=== PATIENT | female | born 1960 | race Caucasian/White ===

== ENCOUNTER 2018-04-15 08:48 | Day surgery (SDC) | payer BC ==
[2018-04-15 09:21] VITALS: TEMP 97.9; BMI 22.1
[2018-04-15] MEDS ORDERED: PROPOFOL 20 ML ONE ×2 (09:22)
[2018-04-15] MEDS ORDERED: ePHEDrine SULFATE 50 MG/1 ML AMPULE ONE (11:31)
[2018-04-15 13:09] VITALS: BP 115/81; PULSE 58
== END 2018-04-15 12:15 | disposition home or self-care (01) ==
LOC: FASU-ENDO 08:48
PROVIDERS: ATTEND Internal Medicine Gastroenterology
PROC: 0DJD8ZZ Inspection of Lower Intestinal Tract, Via Natural or Artificial Opening Endoscopic (ICD-10-PCS; principal; 2018-04-15 11:21)
DX: Z12.11 Encounter for screening for malignant neoplasm of colon (principal)

== ENCOUNTER 2018-11-01 06:02 | Day surgery (SDC) | payer SELFPAY ==
[2018-10-31 11:49] VITALS: BMI 23.8
[2018-11-01] MEDS ORDERED: BACITRACIN 15 GM TUBE TOPICAL OINTMENT ONE (07:16)
[2018-11-01] MEDS ORDERED: LIDOCAINE 1%-EPI 1:100,000 30 ML MDV IJ ONE (07:16)
[2018-11-01] MEDS ORDERED: BENZOIN TINCTURE SWABSTICK TP ONE (07:16)
[2018-11-01] MEDS ORDERED: MINERAL OIL 25 ML OIL ONE (07:26)
[2018-11-01] MEDS ORDERED: BACITRACIN/POLYMYXIN OPH OINT 3.5 GM TUBE ONE (07:27)
[2018-11-01] MEDS ORDERED: PROPOFOL 20 ML ONE ×7 (07:42)
[2018-11-01] MEDS ORDERED: ROCURONIUM BROMIDE 50 MG/5 ML VIAL ONE (07:42)
[2018-11-01] MEDS ORDERED: SUCCINYLCHOLINE CHLORIDE 200 MG/10 ML VIAL ONE (07:42)
[2018-11-01] MEDS ORDERED: MIDAZOLAM HCL 2 MG/2 ML SINGLE DOSE VIAL ONE (07:42)
[2018-11-01] MEDS ORDERED: ceFAZolin SODIUM 1 GM VIAL IVPB ONE (08:10)
[2018-11-01] MEDS ORDERED: DEXAMETHASONE SOD PHOSPHATE 4 MG/1 ML VIAL ONE (08:15)
[2018-11-01] MEDS ORDERED: ceFAZolin SODIUM 1 GM VIAL ONE (08:15)
[2018-11-01] MEDS ORDERED: LIDOCAINE 1%/EPI 1:100000 (50 ML MULTI DOSE VIAL) INF ONE (08:21)
[2018-11-01] MEDS ORDERED: ePHEDrine SULFATE 50 MG/1 ML AMPULE ONE (09:27)
[2018-11-01] MEDS ORDERED: MINERAL OIL 25 ML OIL TP ONE (10:12)
--- NOTE | 2018-11-01 10:22 | OP ---
Operative Note - Note: Operative Date: 11/01/18 Pre-Operative Diagnosis: cosmetic aging face Operation: Facelift Post-Operative Diagnosis: Same as Pre-op Surgeon: Ronald Nelson Anesthesiologist/SPEECH THERAPY DIRECTOR: Nelson Encarnacion Anesthesia: General Estimated Blood Loss (mls): 20
[2018-11-01] MEDS ORDERED: ONDANSETRON 4 MG/2 ML VIAL IVPUSH PRN (10:27)
[2018-11-01] MEDS ORDERED: oxyCODONE HCL 5 MG TABLET PO PRN ×2 (10:27)
[2018-11-01] MEDS ORDERED: PROMETHAZINE HCL 25 MG/1 ML VIAL IVPUSH PRN (10:27)
[2018-11-01 11:52] VITALS: TEMP 98
--- NOTE | 2018-11-01 16:26 | OP ---
DATE OF OPERATION: SURGEON: Jason Nelson M.D. PREOPERATIVE DIAGNOSIS: Aging face deformity. POSTOPERATIVE DIAGNOSIS: Aging face deformity. OPERATIVE PROCEDURE: Face lift. OPERATIVE INDICATION: The patient is a 57-year-old white female who complains of aging face deformity and neck issues with sagging platysmal banding and descent of this tissue. The risks and benefits of surgical versus nonsurgical alternatives as well as material complications of facelift procedure along with the neck and jawline were discussed with the patient on multiple occasions preoperatively including today in the holding area where she was marked in the sitting position with outline of the procedure, re-discussion, and all questions were asked and answered. OPERATIVE PROCEDURE IN DETAIL: Patient was taken to the operating room where after induction of general anesthesia in the supine position, the entire face is prepped with ChloraPrep solution over its entire extent, then serial drapes are placed in the usual fashion with her head draped. At this point, 1% local lidocaine anesthesia with 1:100,000 epinephrine was injected into the planned incision in the preauricular area and then behind the tragus, and then the postauricular area in the usual fashion for facelifting. This was carried out both sides of the face in a dilute 0.25% lidocaine solution with 1:100,000 epinephrine was infiltrated into the neck by 3 stab wounds in the submental region and 2 in the periauricular area . After infiltrating approximately 60 mL into the neck area and waiting approximately 10 minutes, hemostasis was obtained. The face was begun on the right side. Incision was made along the curvature of the preauricular area in a retrotragal fashion, and then in a postauricular area elevating the skin and subcutaneous tissue from the deep tissues. A plane was then dissected forward towards the nasolabial fold on the anterior portion of the face and retrotragal down to the clavicle area. Dissection was then carried forward across the neck on the right side and the skin and subcutaneous tissue was elevated. Hemostasis was meticulously obtained throughout using the bipolar electrocautery and optical magnification of 2.0 power. Once this advanced and closed superiorly and laterally in its new anatomic position, tacked into position, and then the opposite left face was similarly operated on in the same fashion. Good symmetry was then seen after tacking both sides, and then the skin and subcutaneous tissue was trimmed to a pleasing contour. Hemostasis again obtained, and then closed using 3-0 PDS suture on the deep dermis, 4-0 Prolene in a postauricular area along the hairline, and preauricular area was closed with interrupted suture with PDS and 5-0 nylon suture in a continuous locking fashion. Both sides were closed symmetrically . The neck was also suctioned using the handheld suction with a pleasing contour. All wounds were closed symmetrically, and the patient was placed into a slough dressing with cotton, mineral oil, and a circumferential wrap with Flower bandage and Coban. She was awakened and transferred to the recovery room in satisfactory condition. JASON NELSON M.D. DANITA/[id number]
[2018-11-01 18:48] VITALS: BP 102/68; PULSE 66
== END 2018-11-01 14:45 | disposition home or self-care (01) ==
LOC: JASU-SURG 06:02
PROVIDERS: ATTEND Plastic Surgery
CPT/HCPCS: 94760

== ENCOUNTER 2018-11-14 09:30 | Day surgery (SDC) | payer BC ==
[2018-11-05 14:33] VITALS: BMI 23.6
[2018-11-14] MEDS ORDERED: BUPIVACAINE HCL/PF 2.5 MG/ML - 30 ML VIAL IJ ONE (10:38)
[2018-11-14] MEDS ORDERED: SUCCINYLCHOLINE CHLORIDE 200 MG/10 ML VIAL ONE (11:07)
[2018-11-14] MEDS ORDERED: MIDAZOLAM HCL 2 MG/2 ML SINGLE DOSE VIAL ONE (11:07)
[2018-11-14] MEDS ORDERED: PROPOFOL 20 ML ONE ×2 (11:07)
[2018-11-14] MEDS ORDERED: LIDOCAINE HCL/PF 2% SDV 5ML VIAL ONE (11:08)
[2018-11-14] MEDS ORDERED: ONDANSETRON 4 MG/2 ML VIAL ONE ×2 (11:25→12:08)
[2018-11-14] MEDS ORDERED: KETOROLAC TROMETHAMINE 30 MG/1 ML VIAL ONE (11:25)
[2018-11-14] MEDS ORDERED: DEXAMETHASONE SOD PHOSPHATE 4 MG/1 ML VIAL ONE (11:25)
[2018-11-14] MEDS ORDERED: ceFAZolin SODIUM 1 GM VIAL ONE (11:25)
[2018-11-14] MEDS ORDERED: BUPIVACAINE HCL/PF 0.25% (2.5MG/ML) 10 ML VIAL IJ ONE (11:33)
[2018-11-14] MEDS ORDERED: ePHEDrine SULFATE 50 MG/1 ML AMPULE ONE (11:36)
[2018-11-14] MEDS ORDERED: PROMETHAZINE HCL 25 MG/1 ML VIAL IVPUSH PRN (12:09)
[2018-11-14] MEDS ORDERED: oxyCODONE HCL 5 MG TABLET PO PRN ×2 (12:09)
[2018-11-14] MEDS ORDERED: ONDANSETRON 4 MG/2 ML VIAL IVPUSH PRN (12:09)
--- NOTE | 2018-11-14 12:30 | OP ---
Operative Note - Note: Operative Date: 11/14/18 Pre-Operative Diagnosis: Right medial meniscus tear Operation: Right knee arthroscopy Post-Operative Diagnosis: Same as Pre-op Surgeon: Nitish Mariano Executive Vice President: Jennie Gallardo Anesthesiologist/COUTURE ALTERATIONS DRESSMAKER: Nelson Encarnacion Anesthesia: General Operative Report Dictated: Yes
--- NOTE | 2018-11-14 12:37 | OP ---
DATE OF OPERATION: 11/14/2018 POSTOPERATIVE DIAGNOSIS: Right knee medial meniscal tear. POSTOPERATIVE DIAGNOSIS: Right knee medial meniscal tear. PROCEDURE: Right knee arthroscopy with partial medial meniscectomy. SURGEON: Nitish Mariano MD INTERNATIONAL SALES REPRESENTATIVE: PATTI Rodgers ANESTHESIA: General. POSTOPERATIVE CONDITION: Stable. BLOOD LOSS: Minimal. COMPLICATIONS: None. INDICATIONS: This is a pleasant 57-year-old female who had been suffering from medial knee pain. MRI demonstrated medial meniscal tear. Treatment options including nonoperative versus operative management were reviewed. Operative risks were reviewed in detail including bleeding, infection, neurovascular injury, need for further surgery, postoperative pain and stiffness, progression of osteoarthritis. We discussed medical risks such as heart attack, stroke, DVT, PE, and . I addressed the use of perioperative antibiotic and DVT prophylaxis. I addressed all of the patient's questions and concerns. She voiced understanding and elected to proceed. DESCRIPTION OF PROCEDURE: The patient was brought to the operating room where general anesthetic was administered. The right lower extremity was then prepped and draped in the usual sterile fashion. A preoperative dose of antibiotics was given, and the usual time-out procedure was performed. Examination of the knee prior to the procedure demonstrated no effusion and full range of motion. The knee had good stability. The knee was then marked out. The portal sites were injected subcutaneously with 0.25% Marcaine. An 11 blade was now used to establish a lateral portal. The arthroscope was passed through the patellofemoral joint. Examination of the patellofemoral joint demonstrated some very slight superficial fraying on the patellar and trochlear sides. The arthroscope was passed through the notch. Here the ACL and PCL were visualized to be intact. Passing the arthroscope into the medial side demonstrated a displaced meniscal flap on the undersurface of the anterior horn below the medial meniscus. A medial portal was established under spinal needle localization. The medial meniscus was now visualized in its entirety demonstrating diffuse undersurface tearing extending from the posterior horn all along to the anterior horn. Utilizing a combination of meniscal biters and a shaver, this was debrided down to a stable base. Again noted was mild articular wear more on the femoral side than on the tibial side. The arthroscope was now passed into the lateral compartment. Here, the lateral meniscus and articular surfaces were unremarkable. This meniscus was probed and found to be stable. At this point, the excess fluid was withdrawn from the joint. The portals were sutured using 3-0 nylon. Sterile dressings were placed. The patient was extubated and transferred to the recovery room in stable condition. Jaylin DOWELL/[id number]
[2018-11-14] MEDS ORDERED: oxyCODONE HCL 5 MG TABLET ONE (12:44)
[2018-11-14 16:32] VITALS: TEMP 98
[2018-11-14 16:34] VITALS: BP 121/65; PULSE 80
== END 2018-11-14 15:00 | disposition home or self-care (01) ==
LOC: FASU 09:30
PROVIDERS: ATTEND Orthopaedic Surgery Sports Medicine
PROC: 0SBC4ZZ Excision of Right Knee Joint, Percutaneous Endoscopic Approach (ICD-10-PCS; principal; 2018-11-14 11:34)
DX: S83.241A Other tear of medial meniscus, current injury, right knee, initial encounter (principal); X58.XXXA Exposure to other specified factors, initial encounter; Y93.9 Activity, unspecified; Y92.9 Unspecified place or not applicable
CPT/HCPCS: 94760